=== PATIENT | male | born 1955 | race African-American/Black ===

== ENCOUNTER 2017-02-07 00:32 | Emergency (ER) | payer SELFPAY ==
[~2017-02-07] VITALS: Ht 188 cm; Wt 113.5 kg
[2017-02-07] MEDS ORDERED: TETANUS, DIPHTHERIA, PERTUSSIS VAC/PF 0.5ML (>7YR OLD) IM ONE (04:15)
[2017-02-07] MEDS ORDERED: LIDOCAINE HCL 1% 20ML VIAL (Pyxis) INJ MC ONE (04:15)
[2017-02-07] MEDS ORDERED: MORPHINE SULFATE 10 MG/ML CPJ IM ONE (04:15)
[2017-02-07] MEDS ORDERED: BACITRACIN ZINC OINT UDPKT TOP ONE ×2 (04:15→08:22)
[2017-02-07 08:41] VITALS: BP 143/94
== END 2017-02-07 09:10 | disposition short-term general hospital (02) ==
LOC: ER 00:32
DX: S01.511A Laceration without foreign body of lip, initial encounter (principal); I10 Essential (primary) hypertension; R68.84 Jaw pain; M25.511 Pain in right shoulder; V89.2XXA Person injured in unspecified motor-vehicle accident, traffic, initial encounter; Y93.89 Activity, other specified; Y92.89 Other specified places as the place of occurrence of the external cause; Y99.8 Other external cause status
CPT/HCPCS: 12013; 70450; 70486; 72125; 73030; 73060; 73090; 90471; 90715; 96372; 99285; J2270; J3490; Z7610